=== PATIENT | male | born 1975 | race Caucasian/White ===

== ENCOUNTER 2017-03-24 10:21 | Emergency (ER) | payer BC ==
[2017-03-24 10:37] LABS: BASO # 0.1 10*3/uL (0.0-0.1); BASO % 1.1 % (0.0-1.0); EOS # 0.2 10*3/uL (0.0-0.4); EOS % 2.2 % (1.0-4.0); HEMATOCRIT 44.2 % (42.0-52.0); HEMOGLOBIN 14.1 g/dl (14.0-18.0); LYMPH # 2.9 10*3/uL (1.3-4.4); LYMPH % 39.3 % (27.0-41.0); MEAN CELL VOLUME 86.2 fl (80.0-94.0); MEAN CORPUSCULAR HGB 27.5 pg (27.0-31.0); MEAN CORPUSCULAR HGB CONC 31.9 g/dl (33.0-37.0); MONO # 0.5 10*3/uL (0.1-1.0); MONO % 6.4 % (3.0-9.0); NEUT # 3.7 10*3/uL (2.3-7.9); NEUT % 50.5 % (47.0-73.0); PLATELET COUNT AUTOMATED 260 10*3/uL (130-400); RED BLOOD COUNT 5.13 10*6/uL (4.50-5.90); RED CELL DISTRI WIDTH 15.2 % (0-14.5); WHITE BLOOD COUNT 7.4 10*3/uL (4.8-10.8)
[2017-03-24 10:46] LABS: ACT PARTIAL THROMBO TIME 26.8 SECONDS (20.8-31.5)
[2017-03-24 10:53] LABS: ALBUMIN 4.3 gm/dl (3.1-4.5); ALKALINE PHOSPHATASE 60 U/L (45-117); BUN 16 mg/dl (7-24); CHLORIDE 105 mmol/L (98-107); CREATININE 1.19 mg/dL (0.70-1.30); SGOT/AST 20 IU/L (3-35); SGPT/ALT 25 U/L (12-78); SODIUM 141 mmol/L (136-145); TOTAL PROTEIN 7.7 gm/dL (6.4-8.2)
[2017-03-24 10:54] LABS: TROPONIN I < 0.015 ng/ml (<0.045)
== END 2017-03-24 11:21 | disposition home or self-care (01) ==
LOC: ED 10:21
PROVIDERS: Emergency Medicine
DX: R07.89 Other chest pain (principal); M25.512 Pain in left shoulder; I10 Essential (primary) hypertension; E11.9 Type 2 diabetes mellitus without complications; E78.00 Pure hypercholesterolemia, unspecified; I25.10 Atherosclerotic heart disease of native coronary artery without angina pectoris

== ENCOUNTER 2018-01-29 17:26 | Emergency (ER) | payer BC ==
[~2018-01-29] VITALS: Ht 167.6 cm; Wt 89.4 kg
--- NOTE | ~2018-01-29 | EKG ---
[place], [place] ELECTROCARDIOGRAM REPORT NAME: DOYLE LIVINGSTON UNIT #: [id number] ROOM: DOCTOR: ZAHIRA DRAFT REPORT BIRTHDATE: [birth year] [facility] Test Date: 2018-01-29 Test Time: 20:53:07 Pat Name: DOYLE LIVINGSTON Department: ER Room: Gender: Cyber Analyst: SS RESP : 1975 Requested By: KATINA HUA Order Number: [id number] Reading MD: Keya Schmid MD Measurements Intervals [place] Rate: 94 P: 33 WY: 124 QRS: 67 QRSD: 95 T: 9 QT: 364 QTc: 456 Interpretive Statements Sinus rhythm Baseline wander in lead(s) I,III,aVL Electronically Signed On 01-30-2018 11:00:23 PDT by Keya Schmid MD CM:EKGRPT:ELECTROCARDIOGRAM REPORT 52 1100 KATINA RODRIGES DRAFT REPORT KATINA HUANG
[2018-01-29 18:48] LABS: BASO # 0.1 10*3/uL (0.0-0.1); BASO % 0.6 % (0.0-1.0); EOS # 0.1 10*3/uL (0.0-0.4); EOS % 1.3 % (1.0-4.0); HEMATOCRIT 39.2 % (42.0-52.0); HEMOGLOBIN 12.7 g/dl (14.0-18.0); LYMPH # 2.1 10*3/uL (1.3-4.4); LYMPH % 20.3 % (27.0-41.0); MEAN CELL VOLUME 84.8 fl (80.0-94.0); MEAN CORPUSCULAR HGB 27.5 pg (27.0-31.0); MEAN CORPUSCULAR HGB CONC 32.4 g/dl (33.0-37.0); MEAN PLATELET VOLUME 8.5 fl (9.6-12.3); MONO # 0.7 10*3/uL (0.1-1.0); NEUT # 7.2 10*3/uL (2.3-7.9); NEUT % 70.4 % (47.0-73.0); PLATELET COUNT AUTOMATED 278 10*3/uL (130-400); RED BLOOD COUNT 4.62 10*6/uL (4.50-5.90); RED CELL DISTRI WIDTH 15.2 % (0-14.5); WHITE BLOOD COUNT 10.2 10*3/uL (4.8-10.8)
[2018-01-29 18:50] LABS: BILIRUBIN NEGATIVE (NEGATIVE); BLOOD NEGATIVE (NEGATIVE); CLARITY CLEAR (CLEAR); COLOR YELLOW (YELLOW); GLUCOSE NEGATIVE (NEGATIVE); KETONE NEGATIVE (NEGATIVE); LEUKO ESTERASE NEGATIVE (NEGATIVE); NITRITE NEGATIVE (NEGATIVE); SPECIFIC GRAVITY >= 1.030 (1.005-1.030); UROBILINOGEN 0.2 E.U./dl (0.2-1.0)
[2018-01-29 18:58] LABS: ACT PARTIAL THROMBO TIME 25.6 SECONDS (20.8-31.5)
[2018-01-29 19:02] LABS: ALBUMIN 3.8 gm/dl (3.1-4.5); ALKALINE PHOSPHATASE 52 U/L (45-117); BUN 12 mg/dl (7-24); CHLORIDE 107 mmol/L (98-107); CREATININE 0.96 mg/dL (0.70-1.30); LIPASE 111 U/L (73-393); POTASSIUM 3.8 mmol/L (3.5-5.1); SGOT/AST 25 IU/L (3-35); SGPT/ALT 38 U/L (12-78); SODIUM 140 mmol/L (136-145); TOTAL PROTEIN 7.2 gm/dL (6.4-8.2)
[2018-01-29 19:04] LABS: BACTERIA TRACE; EPITHELIAL CELLS 0-2; MUCOUS TRACE
== END 2018-01-29 21:07 | disposition home or self-care (01) ==
LOC: ED 17:26
PROVIDERS: Physician Assistant
DX: R10.9 Unspecified abdominal pain (principal); M54.6 Pain in thoracic spine; R11.0 Nausea; Z88.6 Allergy status to analgesic agent

== ENCOUNTER → 2020-12-02 | Outpatient (CLI) | payer BC ==
[~2020-12-02] MED LIST: FLUCONAZOLE100 MG PO; PAXIL30 M2 PO; PERCOCET 5-3251 EACH PO; PROTONIX40 MG PO; SANDOSTATI50 MCG/1 M IJ; VITAMIN D3125 MC1 PEG
== END | disposition home or self-care (01) ==
LOC: RAD 08:43
PROVIDERS: ATTEND Surgery
DX: L03.012 Cellulitis of left finger (principal)

== ENCOUNTER → 2020-12-18 | Day surgery (SDC) | payer BC ==
[~2020-12-18] VITALS: Ht 167.6 cm; Wt 99.8 kg
[2020-12-18 07:15] VITALS: BP 160/90
[2020-12-18 09:44] VITALS: BP 129/80
[2020-12-18 10:00] VITALS: BP 106/71
[2020-12-18 10:15] VITALS: BP 115/69
== END | disposition home or self-care (01) ==
LOC: SDC 12-12 13:45
PROVIDERS: ATTEND Surgery
DX: L03.012 Cellulitis of left finger (principal); B37.2 Candidiasis of skin and nail; K21.9 Gastro-esophageal reflux disease without esophagitis; Z20.822 Contact with and (suspected) exposure to COVID-19; Z98.890 Other specified postprocedural states

== ENCOUNTER → 2021-04-24 | Outpatient (CLI) | payer BC | END | disposition home or self-care (01) | LOC: RAD 09:26 | PROVIDERS: ATTEND Nurse Practitioner Family | DX: R05.9 Cough, unspecified (principal); R06.02 Shortness of breath; J98.4 Other disorders of lung; R06.2 Wheezing ==

== ENCOUNTER → 2021-11-05 | Day surgery (SDC) | payer BC ==
[~2021-11-05] VITALS: Ht 167.6 cm; Wt 95.3 kg
[~2021-11-05] MED LIST changes: +METFORMIN HYDR500 MG PO; +OZEMPIC1 MG/0.71 SQ
[2021-11-05 08:53] VITALS: BP 89/54
[2021-11-05 09:10] VITALS: BP 91/53
[2021-11-05 09:23] VITALS: BP 100/39
== END | disposition home or self-care (01) ==
LOC: SDC 11-02 10:15
PROVIDERS: ATTEND Surgery
DX: R10.13 Epigastric pain (principal); K21.9 Gastro-esophageal reflux disease without esophagitis; K31.84 Gastroparesis; K29.50 Unspecified chronic gastritis without bleeding; Z88.5 Allergy status to narcotic agent; Z88.8 Allergy status to other drugs, medicaments and biological substances; Z79.899 Other long term (current) drug therapy

== ENCOUNTER → 2024-05-24 | Outpatient (CLI) | payer OTHER ==
[~2024-05-24] MED LIST changes: +ASPIRIN ADULT L81 M2 PO; +ATORVASTATIN CA80 M1 PO; +ENOXAPARIN100 MG/1 M SC; +NTG 25 MG/25 MG/250 IV
== END | disposition home or self-care (01) ==
LOC: RAD 14:32
PROVIDERS: ATTEND Nurse Practitioner Family
DX: N23 Unspecified renal colic (principal)